=== PATIENT | female | born 1990 | race Caucasian/White ===

== ENCOUNTER 2018-06-30 14:29 | Inpatient (IN) | payer BC ==
[2018-06-30 16:05] LABS: Appearance CLEAR (CLEAR); Bilirubin NEGATIVE (NEGATIVE); Glucose NEGATIVE (NEGATIVE); Ketones NEGATIVE (NEGATIVE); Nitrite NEGATIVE (NEGATIVE); Protein,Urine Dip NEGATIVE (Negative); RBC NEGATIVE Ery/ul (0-5); Urobilinogen 0.2 mg/dL (0-1)
[2018-06-30] MEDS ORDERED: TYLENOL EXTRA STRENGTH 500 MG PO PRN (16:35)
[2018-06-30] MEDS ORDERED: XYLOCAINE 1% HCL 20 ML MDV IJ PRN (16:35)
[2018-06-30] MEDS ORDERED: Phenergan 25 MG INJ IV PRN (16:35)
[2018-06-30] MEDS ORDERED: Zofran 4 MG/2 ML VIAL IV PRN (16:35)
[2018-06-30 16:47] LABS: Hematocrit 36.8 % (35-47); Hemoglobin 12.5 gm/dl (12.0-16.0); Mean Cell Volume 94.4 fl (78-100); Mean Platelet Volume 11.5 fl (6-9.5); Platelet Count 280 K/mm3 (150-450); Red Cell Distribution Width 13.4 % (11.5-14.0); White Blood Count 17.1 K/mm3 (4.0-10.5)
[2018-06-30 17:13] LABS: ALBUMIN 3.6 g/dL (3.5-5.0); ALKALINE PHOSPHATASE 163 U/L (38-126); ANION GAP 12.9 MEQ/L (5-15); BLOOD UREA NITROGEN 7 mg/dL (7-17); CHLORIDE 106 mmol/L (98-107); Calcium 9.4 mg/dL (8.4-10.2); Carbon Dioxide 20 mmol/L (22-30); Creatinine 1 0.41 mg/dL (0.52-1.04); Glucose 164 mg/dL (74-106); SGOT/AST 28 U/L (14-36); SGPT/ALT 23 U/L (0-35); SODIUM 136 mmol/L (137-145); Total Protein 7.1 g/dL (6.3-8.2)
[2018-06-30 18:01] LABS: Amphetamine,Urine NEGATIVE (NEGATIVE); Barbiturate,Urine NEGATIVE (NEGATIVE); Benzodiazepine,Urine NEGATIVE (NEGATIVE); Cocaine,Urine NEGATIVE (NEGATIVE); Methadone,Urine NEGATIVE (NEGATIVE); Opiate,Urine NEGATIVE (NEGATIVE); PCP,Urine NEGATIVE (NEGATIVE); THC,Urine NEGATIVE (NEGATIVE)
[2018-06-30 18:27] LABS: BAND 1 % (0.0-2.0); Basophil 1 % (0.0-1.0); Eosinophil 1 % (0.00-3.0); Granulocyte Absolute (ANC) 13.31 (1.4-6.9); Lymphocytes 15 % (24-44); Monocyte 5 % (0.0-12.0); Neutrophils 77 % (36.0-66.0); Platelet Estimate NORMAL (NORMAL); Total Cells Counted 100
--- NOTE | 2018-06-30 18:35 | XRAY ---
Indication: well-being. Evaluate LAURA. Limited OB ultrasound performed to evaluate LAURA. There is a single intrauterine with heart rate 149 bpm. Four-quadrant LAURA is 11.1 cm, previously 11.9 cm on March 10, 2018.
[2018-06-30] MEDS ORDERED: BRETHINE 1 MG/ML SQ PRN (19:44)
[2018-06-30] MEDS ORDERED: Cervidil 10 MG VAG SCH (22:00)
[2018-07-01] MEDS: PITOCIN 30 UNITS/ LR 500 ML 500 ML IV SCH (06:00)
[2018-07-01] MEDS ORDERED: OMNIPEN 2 GM / NACL 100ML 100 ML IV ONE (06:00)
[2018-07-01] MEDS: Lactated Ringers 1,000 ML IV SCH ×2 (06:00→14:52)
[2018-07-01] MEDS: OMNIPEN 1GM / NaCl 100ML 100 ML IV SCH ×2 (09:55→14:52)
[2018-07-01] MEDS ORDERED: Cervidil 10 MG VAG SCH (18:00)
[2018-07-02] MEDS: OMNIPEN 1GM / NaCl 100ML 100 ML IV SCH ×4 (06:04→17:51)
[2018-07-02] MEDS: PITOCIN 30 UNITS/ LR 500 ML 500 ML IV SCH ×3 (06:04→22:14)
[2018-07-02] MEDS: Lactated Ringers 1,000 ML IV SCH ×2 (06:05→19:17)
[2018-07-02] MEDS ORDERED: Ephedrine Sulfate 50 MG/ML IV PRN (09:53)
[2018-07-02] MEDS ORDERED: Lactated Ringers 1,000 ML IV ONE (09:53)
[2018-07-02] MEDS: OB EPIDURAL NAROPIN/SUFENTANIL IN NACL EPIDURAL PRN ×2 (10:50→18:47)
[2018-07-02] MEDS ORDERED: Dulcolax 10 MG SUPP PR PRN (22:01)
[2018-07-02] MEDS ORDERED: CORTISONE 1% CREAM TP PRN (22:01)
[2018-07-02] MEDS ORDERED: Dermoplast Spray TP PRN (22:01)
[2018-07-02] MEDS ORDERED: Mylicon 80MG PO PRN (22:01)
[2018-07-02] MEDS ORDERED: TUCKS TP PRN (22:01)
[2018-07-02] MEDS ORDERED: NORCO 5/325 MG PO PRN (22:01)
[2018-07-02] MEDS ORDERED: Anucort-HC SUPPOSITORY PR PRN (22:01)
[2018-07-02] MEDS ORDERED: LANSINOH 40 GM TOP PRN (22:01)
[2018-07-03 05:40] LABS: Granulocyte Absolute (ANC) 17.09 (1.4-6.9); Hematocrit 27.1 % (35-47); Hemoglobin 8.8 gm/dl (12.0-16.0); Mean Cell Volume 95.8 fl (78-100); Mean Corpuscular Hgb Concent. 32.5 g/dl (32-36); Mean Platelet Volume 12.1 fl (6-9.5); Platelet Count 218 K/mm3 (150-450); Red Blood Count 2.83 M/mm3 (4.1-5.4); Red Cell Distribution Width 13.2 % (11.5-14.0); White Blood Count 22.7 K/mm3 (4.0-10.5)
[2018-07-03 07:32] LABS: BAND 3 % (0.0-2.0); Lymphocytes 12 % (24-44); Monocyte 9 % (0.0-12.0); Neutrophils 76 % (36.0-66.0); Total Cells Counted 100
[2018-07-03 07:34] LABS: Platelet Estimate NORMAL (NORMAL)
[2018-07-03] MEDS ORDERED: Adacel Vial IM ONE (10:00)
[2018-07-03] MEDS: MOTRIN 400 MG PO PRN ×2 (13:32→20:38)
[2018-07-03] MEDS: Colace 100 MG PO SCH ×2 (13:33→20:37)
[2018-07-03] MEDS: FERREX 150 PO SCH (17:13)
[2018-07-04 05:41] VITALS: O2SAT 99
--- NOTE | 2018-07-04 09:08 | PCM.DS ---
Discharge Summary Date of Admission: 07/02/18 09:09 Admitting Physician: BIMAL TRAN Primary Care Provider: BIMAL TRAN Allergies Allergies No Known Drug Allergies Allergy (Verified 06/30/18 16:48) Hospital Summary - Hospital Course Hospital Course: had , no complications. doing well , and pain controlled. - Vitals & Intake/Output Vital Signs: Vital Signs Temperature 97.7 F 07/04/18 03:00 Pulse Rate 97 H 07/04/18 03:00 Respiratory Rate 16 07/04/18 03:00 Blood Pressure 133/69 07/04/18 03:00 O2 Sat by Pulse Oximetry 99 07/04/18 03:00 Intake & Output: Intake & Output 07/01/18 07/02/18 07/03/18 07/04/18 11:59 11:59 11:59 11:59 Intake Total 960 2440 3699 1379 Output Total 400 Balance 960 2440 3299 1379 Weight 112.945 kg - Lab Result Diagrams: 07/03/18 05:35 06/30/18 16:44 - Procedures and Test Procedures and Tests throughout Hospitalization: Therapy Orders & Screens 07/02/18 20:00 Standby Routine Comment: Diagnosis: Induction of Labor Discharge Exam General Appearance: no apparent distress, alert Skin Exam: normal color, warm, dry Respiratory Exam: normal breath sounds, lungs clear, No respiratory distress Cardiovascular Exam: regular rate/rhythm, normal heart sounds Gastrointestinal/Abdomen Exam: soft, No tenderness, No mass Extremity Exam: normal inspection, normal range of motion Final Diagnosis/Problem List - Final Discharge Diagnosis/Problem (1) Vaginal delivery Current Visit: Yes Status: Acute Code(s): O80 - ENCOUNTER FOR FULL-TERM UNCOMPLICATED DELIVERY - Discharge Disposition: Home, Self-Care Condition: Stable Prescriptions: No Action No Reportable Medications [No Reported Medications] Follow up with: BIMAL TRAN MD [Primary Care Provider] - 1 Week
[2018-07-04] MEDS: Colace 100 MG PO SCH (09:50)
[2018-07-04] MEDS: FERREX 150 PO SCH (09:50)
[2018-07-04 10:03] VITALS: BP 142/74; PULSE 85
== END 2018-07-04 15:10 | disposition home or self-care (01) | DRG 807 ==
LOC: CLIN-LAKE 14:29 → OB 16:22 → OBSVTOIN 07-02 09:09
PROVIDERS: ADMIT Family Medicine; ATTEND Family Medicine
PROC: 0KQM0ZZ Repair Perineum Muscle, Open Approach (ICD-10-PCS; principal; 2018-07-02)
PROC: 10E0XZZ Delivery of Products of Conception, External Approach (ICD-10-PCS; 2018-07-02)
DX: O70.1 Second degree perineal laceration during delivery (principal); Z37.0 Single live birth; Z3A.38 38 weeks gestation of pregnancy
CPT/HCPCS: 36415; 76815; 80053; 80307; 81003; 84550; 85025; 90471; 90715; 94799; G0378; J0290; J2590; J2795; A9270-GY

== ENCOUNTER 2020-11-28 09:56 | Emergency (ER) | payer BC ==
[2020-11-28] MEDS ORDERED: TYLENOL 325 MG PO ONE (10:11)
[2020-11-28] MEDS ORDERED: Sodium Chloride 0.9% 1000 ML 1,000 ML IV STA (10:11)
[2020-11-28] MEDS ORDERED: TORAdol 30 mg Injection IV ONE (10:11)
[2020-11-28 10:26] LABS: Absolute Neutrophil Ct (ANC) 13.46 (1.4-6.9); BASOPHIL % 0.2 % (0.0-0.4); Basophil (Absolute #) 0.04 (0-0.4); Eosinophil % 1.6 % (0.00-5.0); Eosinophil (Absolute #) 0.28 (0-0.5); Hematocrit 41.6 % (35-47); Hemoglobin 13.5 gm/dl (12.0-16.0); Lymphocyte (Absolute #) 3.24 (1.0-4.6); Lymphocytes % 18.1 % (24.0-44.0); Mean Corpuscular Hemoglobin 29.2 pg (26-32); Mean Corpuscular Hgb Concent. 32.5 g/dl (32-36); Mean Platelet Volume 10.8 fl (7.5-11.0); Monocyte (Absolute #) 0.87 (0.0-1.3); Monocytes % 4.9 % (0.0-12.0); Neutrophil % 75.2 % (36.0-66.0); Platelet Count 280 K/mm3 (150-450); Red Blood Count 4.62 M/mm3 (4.1-5.4); Red Cell Distribution Width 13.5 % (11.5-14.0); White Blood Count 17.9 K/mm3 (4.0-10.5)
[2020-11-28] MEDS ORDERED: TORAdol 30 mg Injection ONE (10:33)
[2020-11-28] MEDS ORDERED: TYLENOL 325 MG ONE (10:34)
[2020-11-28] MEDS ORDERED: Sodium Chloride 0.9% 1000 ML 1,000 ML ONE (10:34)
[2020-11-28 10:37] LABS: ALBUMIN 4.5 g/dL (3.5-5.0); ALKALINE PHOSPHATASE 90 U/L (38-126); ANION GAP 15.9 MEQ/L (5-15); BLOOD UREA NITROGEN 11 mg/dL (7-17); CHLORIDE 104 mmol/L (98-107); Calcium 9.5 mg/dL (8.4-10.2); Carbon Dioxide 23 mmol/L (22-30); Creatinine 1 0.47 mg/dL (0.52-1.04); EST GLOMERULAR FILTRATION RATE > 60.0 ML/MIN; Glucose 118 mg/dL (74-106); SGOT/AST 22 U/L (14-36); SGPT/ALT 15 U/L (0-35); SODIUM 139 mmol/L (137-145); Total Protein 7.9 g/dL (6.3-8.2)
--- NOTE | 2020-11-28 10:59 | ERPHSYRPT ---
- History of Present Illness Time Seen by Provider: 11/28/20 10:15 Patient Subjective Stated Complaint: HTN x 2 days Triage Nursing Assessment: pt to ED c/o HTN x 2 days. has not been on lisinopril for 2 weeks due to not seeing PCP before she left office. has not been established with new PCP at this time. denies CP. also reports some episodes of tachycardia in the 150s on her smart watch. pt states she had 1 baby asa this morning to help relieve migraine and feelings of tingling in hands and feet. Physician History: Patient is a 30-year-old female presents to our ED with complaints of migraine headache. Patient checked her blood pressure states it was elevated. Patient also states she has not taken her lisinopril in approximately 2 weeks because she has not been able to see her primary care physician. Patient mildly tachycardic on the dry house attendant. She states she is feeling tingling sensations in her hands and feet. No fever. No cough. No nausea or vomiting. No abdominal pain. No diarrhea. No rash. 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 No obvious sick contacts. Symptoms have been ongoing for 1 day. Symptoms are mild to moderate in intensity. No specific worsening or improving factors. Patient voices no other complaints concerns at this time. Timing/Duration: yesterday Severity: moderate Modifying Factors: Improves With: nothing Associated Symptoms: denies symptoms Allergies/Adverse Reactions: No Known Drug Allergies Allergy (Verified 11/28/20 10:12) Home Medications: Desogestrel-Ethinyl Estradiol [Apri 28 Day Tablet] 1 each PO DAILY 11/28/20 [History] Fremanezumab-Vfrm [Ajovy Autoinjector] 225 mg SQ DIRECTIONS UNKNOWN 11/28/20 [History] lisinopriL [Lisinopril] 10 mg PO DAILY 11/28/20 [History] Hx Tetanus, Diphtheria Vaccination/Date Given: Yes Hx Influenza Vaccination/Date Given: Yes Hx Pneumococcal Vaccination/Date Given: No Immunizations Up to Date: Yes Travel Risk - International Travel Have you traveled outside of the country in past 3 weeks: No - Coronavirus Screening Are you exhibiting any of the following symptoms?: No Close contact with a COVID-19 positive Pt in past 14-21 Days: No - Vaccine Status Have you recieved a Covid-19 vaccination: No - Review of Systems Constitutional: No Symptoms, No Fever, No Chills Eyes: No Symptoms Ears, Nose, & Throat: No Symptoms Respiratory: No Symptoms, No Cough, No Dyspnea Cardiac: No Symptoms, No Chest Pain, No Edema, No Syncope Abdominal/Gastrointestinal: No Symptoms, No Abdominal Pain, No Nausea, No Vomiting, No Diarrhea Genitourinary Symptoms: No Symptoms, No Dysuria Musculoskeletal: No Symptoms, No Back Pain, No Neck Pain Skin: No Symptoms, No Rash Neurological: No Symptoms, No Dizziness, No Focal Weakness, No Sensory Changes Psychological: No Symptoms Endocrine: No Symptoms Hematologic/Lymphatic: No Symptoms Immunological/Allergic: No Symptoms All Other Systems: Reviewed and Negative - Past Medical History Pertinent Past Medical History: Yes Neurological History: Migraines ENT History: No Pertinent History Cardiac History: Hypertension Respiratory History: No Pertinent History Endocrine Medical History: No Pertinent History Musculoskeletal History: No Pertinent History GI Medical History: No Pertinent History History: No Pertinent History Psycho-Social History: Depression Female Reproductive Disorders: No Pertinent History - Past Surgical History Past Surgical History: No Neuro Surgical History: No Pertinent History Cardiac: No Pertinent History Respiratory: No Pertinent History Gastrointestinal: No Pertinent History Genitourinary: No Pertinent History Musculoskeletal: No Pertinent History Female Surgical History: No Pertinent History - Social History Smoking Status: Current every day smoker How long have you smoked: 13 yrs Exposure to second hand smoke: No Drug Use: none Patient Lives Alone: No - Female History Hx Last Menstrual Period: last week Hx Now: No - Nursing Vital Signs Nursing Vital Signs: Initial Vital Signs Temperature 98.1 F 11/28/20 10:05 Pulse Rate 123 H 11/28/20 10:05 Respiratory Rate 17 11/28/20 10:05 Blood Pressure 139/84 11/28/20 10:05 O2 Sat by Pulse Oximetry 98 11/28/20 10:05 Pain Scale Pain Intensity 6 - Physical Exam General Appearance: no apparent distress, alert, obese Eye Exam: PERRL/EOMI, eyes nml inspection Ears, Nose, Throat Exam: normal ENT inspection, TMs normal, pharynx normal, moist mucous membranes Neck Exam: normal inspection, non-tender, supple, full range of motion Respiratory Exam: normal breath sounds, lungs clear, No respiratory distress Cardiovascular Exam: normal heart sounds, normal peripheral pulses, other (Sinus tachycardia on EKG.) Gastrointestinal/Abdomen Exam: soft, normal bowel sounds, No tenderness, No mass Back Exam: normal inspection, normal range of motion, No CVA tenderness, No vertebral tenderness Extremity Exam: normal inspection, normal range of motion, pelvis stable Neurologic Exam: alert, oriented x 3, cooperative, normal mood/affect, nml cerebellar function, nml station & gait, sensation nml, No motor deficits Skin Exam: normal color, warm, dry, No rash Lymphatic Exam: No adenopathy SpO2 Interpretation: normal SpO2: 98 O2 Delivery: Room Air - Course Nursing assessment & vital signs reviewed: Yes - Radiology Exams Chest X-ray Interpretation: Teleradiologist Report (Portable chest demonstrates normal heart lungs and bony thorax.) Ordered Tests: Active Orders 24 hr Category Date Time Status IV Insertion STAT Care 11/28/20 10:11 Active CHEST 1 VIEW (PORTABLE) Stat Exams 11/28/20 10:55 Completed BLOOD CULTURE Stat Lab 11/28/20 11:35 Received CBC W DIFF Stat Lab 11/28/20 10:11 Completed CMP Stat Lab 11/28/20 10:29 Completed HCG,QUALITATIVE URINE Stat Lab 11/28/20 11:35 Completed UA W/RFX UR CULTURE Stat Lab 11/28/20 11:35 Completed Medication Summary Discontinued Medications Generic Name Dose Route Start Last Admin Trade Name Freq PRN Reason Stop Dose Admin Acetaminophen 975 mg 11/28/20 10:11 11/28/20 10:35 Tylenol 325 Mg PO 11/28/20 10:12 975 mg STAT ONE Administration Acetaminophen Confirm 11/28/20 10:34 Tylenol 325 Mg Administered 11/28/20 10:35 Dose 975 mg .ROUTE .STK-MED ONE Sodium Chloride 1,000 mls @ 999 mls/hr 11/28/20 10:11 11/28/20 10:36 Sodium Chloride 0.9% 1000 Ml IV 11/28/20 11:11 999 mls/hr .Q1H1M STA Administration Sodium Chloride Confirm 11/28/20 10:34 Sodium Chloride 0.9% 1000 Ml Administered 11/28/20 10:35 Dose 1,000 mls @ ud .ROUTE .STK-MED ONE Ketorolac Tromethamine 30 mg 11/28/20 10:11 11/28/20 10:36 Toradol 30 Mg Injection IV 11/28/20 10:12 30 mg STAT ONE Administration Ketorolac Tromethamine Confirm 11/28/20 10:33 Toradol 30 Mg Injection Administered 11/28/20 10:34 Dose 30 mg .ROUTE .[facility]-MED ONE Lab/Rad Data: Laboratory Result Diagrams 11/28/20 10:11 11/28/20 10:29 Laboratory Results 11/28/20 11/28/20 11/28/20 Range/Units 11:35 11:35 10:29 WBC (4.0-10.5) K/mm3 RBC (4.1-5.4) M/mm3 Hgb (12.0-16.0) gm/dl Hct (35-47) % MCV (78-100) fl MCH (26-32) pg MCHC (32-36) g/dl RDW (11.5-14.0) % Plt Count (150-450) K/mm3 MPV (7.5-11.0) fl Gran % (36.0-66.0) % Eos # (Auto) (0-0.5) Absolute Lymphs (auto) (1.0-4.6) Absolute Monos (auto) (0.0-1.3) Lymphocytes % (24.0-44.0) % Monocytes % (0.0-12.0) % Eosinophils % (0.00-5.0) % Basophils % (0.0-0.4) % Absolute Granulocytes (1.4-6.9) Basophils # (0-0.4) Sodium 139 (137-145) mmol/L Potassium 4.0 (3.5-5.1) mmol/L Chloride 104 (98-107) mmol/L Carbon Dioxide 23 (22-30) mmol/L Anion Gap 15.9 H (5-15) MEQ/L BUN 11 (7-17) mg/dL Creatinine 0.47 L (0.52-1.04) mg/dL Estimated GFR > 60.0 ML/MIN Glucose 118 H (74-106) mg/dL Calcium 9.5 (8.4-10.2) mg/dL Total Bilirubin 0.30 (0.2-1.3) mg/dL AST 22 (14-36) U/L ALT 15 (0-35) U/L Alkaline Phosphatase 90 (38-126) U/L Serum Total Protein 7.9 (6.3-8.2) g/dL Albumin 4.5 (3.5-5.0) g/dL Urine Color STRAW (YELLOW) Urine Appearance CLEAR (CLEAR) Urine pH 8.0 (5-6) Ur Specific Eagle 1.003 (1.005-1.025) Urine Protein NEGATIVE (Negative) Urine Ketones NEGATIVE (NEGATIVE) Urine Blood NEGATIVE (0-5) Dano/ul Urine Nitrite NEGATIVE (NEGATIVE) Urine Bilirubin NEGATIVE (NEGATIVE) Urine Urobilinogen NEGATIVE (0-1) mg/dL Ur Leukocyte Esterase TRACE (NEGATIVE) Urine WBC (Auto) 3-5 (0-5) /HPF Urine RBC (Auto) 0-2 (0-2) /HPF U Epithel Cells (Auto) RARE (FEW) /HPF Urine Bacteria (Auto) RARE (NEGATIVE) /HPF Urine Culture Reflexed NO (NO) Urine Glucose NEGATIVE (NEGATIVE) mg/dL Urine HCG, Qual NEGATIVE (Negative) 11/28/20 Range/Units 10:11 WBC 17.9 H (4.0-10.5) K/mm3 RBC 4.62 (4.1-5.4) M/mm3 Hgb 13.5 (12.0-16.0) gm/dl Hct 41.6 (35-47) % MCV 90.0 (78-100) fl MCH 29.2 (26-32) pg MCHC 32.5 (32-36) g/dl RDW 13.5 (11.5-14.0) % Plt Count 280 (150-450) K/mm3 MPV 10.8 (7.5-11.0) fl Gran % 75.2 H (36.0-66.0) % Eos # (Auto) 0.28 (0-0.5) Absolute Lymphs (auto) 3.24 (1.0-4.6) Absolute Monos (auto) 0.87 (0.0-1.3) Lymphocytes % 18.1 L (24.0-44.0) % Monocytes % 4.9 (0.0-12.0) % Eosinophils % 1.6 (0.00-5.0) % Basophils % 0.2 (0.0-0.4) % Absolute Granulocytes 13.46 H (1.4-6.9) Basophils # 0.04 (0-0.4) Sodium (137-145) mmol/L Potassium (3.5-5.1) mmol/L Chloride (98-107) mmol/L Carbon Dioxide (22-30) mmol/L Anion Gap (5-15) MEQ/L BUN (7-17) mg/dL Creatinine (0.52-1.04) mg/dL Estimated GFR ML/MIN Glucose (74-106) mg/dL Calcium (8.4-10.2) mg/dL Total Bilirubin (0.2-1.3) mg/dL AST (14-36) U/L ALT (0-35) U/L Alkaline Phosphatase (38-126) U/L Serum Total Protein (6.3-8.2) g/dL Albumin (3.5-5.0) g/dL Urine Color (YELLOW) Urine Appearance (CLEAR) Urine pH (5-6) Ur Specific Eagle (1.005-1.025) Urine Protein (Negative) Urine Ketones (NEGATIVE) Urine Blood (0-5) Dano/ul Urine Nitrite (NEGATIVE) Urine Bilirubin (NEGATIVE) Urine Urobilinogen (0-1) mg/dL Ur Leukocyte Esterase (NEGATIVE) Urine WBC (Auto) (0-5) /HPF Urine RBC (Auto) (0-2) /HPF U Epithel Cells (Auto) (FEW) /HPF Urine Bacteria (Auto) (NEGATIVE) /HPF Urine Culture Reflexed (NO) Urine Glucose (NEGATIVE) mg/dL Urine HCG, Qual (Negative) - Progress Progress: improved Progress Note: Patient reassessed. Tachycardia improving. Headache improving. No paresthesias at this time. We are awaiting a urinalysis. Leukocytosis observed on CBC. No clear source. Chest x-ray ordered. 11/28/20 11:00 11/28/20 11:47 Patient reassessed. Symptoms completely resolved. Tachycardia resolved. Headache resolved. Paresthesias resolved. Urinalysis negative for UTI. Patient does have a leukocytosis of unknown clear etiology. Chest x-ray negative for acute cardiopulmonary process. No indication for further work-up at this time. Cultures pending. Will discharge home. Patient agrees to follow-up with her primary care doctor within 48 hours for reevaluation. Patient will need follow-up for her leukocytosis. Portions of this note were created with voice recognition technology. There may be grammatical, spelling, punctuation or sound alike errors Counseled pt/family regarding: lab results, diagnosis, need for follow-up, rad results - Departure Departure Disposition: Home Clinical Impression: Leukocytosis, Tachycardia, Paresthesia of both feet, Paresthesia of both hands, Hypertension Condition: Stable Critical Care Time: No Referrals: DOCTOR,NO FAMILY [Primary Care Provider] - BIMAL TRAN MD [ACTIVE STAFF] - Additional Instructions: Please follow-up with your primary care doctor within 48 hours for reevaluation. We will need to reassess your laboratory work-up to follow your elevated white blood cells. Call your primary care doctor today for a follow-up appointment. Discharge/Care Plan ANDREW AKBAR was seen on 11/28/20 in the Emergency Room. The patient was counseled regarding Diagnosis,Lab results, Imaging studies, need for follow up and when to return to the Emergency Room. Prescriptions given: Discharge Note I have spoken with the patient and/or caregivers. I have explained the patient's condition, diagnosis and treatment plan based on the information available to me at this time. I have answered the patient's and/or caregiver's questions and addressed any concerns. The patient and/or caregivers have as good understanding of the patient's diagnosis, condition and treatment plan as can be expected at this point. The vital signs have been stable. The patient's condition is stable and appropriate for discharge from the emergency department. The patient will pursue further outpatient evaluation with the primary care physician or other designated or consulting physician as outlined in the discharge instructions. The patient and/or caregivers are agreeable to this plan of care and follow-up instructions have been explained in detail. The patient and/or caregivers have received these instruction. The patient/and or caregivers are aware that any significant change in condition or worsening of symptoms should prompt an immediate return to this or the closest emergency department or call 911.
--- NOTE | 2020-11-28 11:27 | XRAY ---
Indication: Pneumonia. Comparison: June 01, 2019. Portable chest again demonstrates normal heart, lungs, and bony thorax.
[2020-11-28 11:39] LABS: Appearance CLEAR (CLEAR); Bacteria RARE /HPF (NEGATIVE); Bilirubin NEGATIVE (NEGATIVE); Blood NEGATIVE Ery/ul (0-5); Epithelial Cells RARE /HPF (FEW); Glucose NEGATIVE (NEGATIVE); Ketones NEGATIVE (NEGATIVE); Leukocyte Esterase TRACE (NEGATIVE); Nitrite NEGATIVE (NEGATIVE); Protein,Urine Dip NEGATIVE (Negative); RBC 0-2 /HPF (0-2); Specific Gravity 1.003 (1.005-1.025); Urobilinogen NEGATIVE mg/dL (0-1)
[2020-11-28 11:52] VITALS: BP 140/85; PULSE 90; O2SAT 98
== END 2020-11-28 12:03 | disposition home or self-care (01) ==
LOC: ED 09:56
DX: D72.829 Elevated white blood cell count, unspecified (principal); R00.0 Tachycardia, unspecified; R20.2 Paresthesia of skin; I10 Essential (primary) hypertension
CPT/HCPCS: 36000; 36415; 71045; 80053; 81001; 84703; 85025; 87040; 96374; 99284; J1885; A9270-GY